=== PATIENT | female | born 2000 | race Caucasian/White ===

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

== ENCOUNTER 2023-05-09 13:27 | Emergency (ER) | payer BC, SELFPAY ==
[2023-05-09 13:50] VITALS: BP 144/76; PULSE 85; RESP 20; TEMP 36.9; O2SAT 99; BMI 29.9
--- NOTE | 2023-05-09 14:02 | ED_ITS ---
Discharge Plan Disposition Patient Disposition: Home, Self-Care Condition: Good Prescriptions Prescriptions: New methocarbamol 500 mg tablet 500 mg PO TID PRN (Reason: muscle spasm) Qty: 15 0RF etodolac 200 mg capsule 200 mg PO Q8H PRN (Reason: pain) Qty: 20 0RF Referrals Follow up/Referrals: Hawk Lucas [Primary Care Provider] - See instructions Activity Restrictions/Add. Instructions Additional Instructions/Restrictions: *Etodolac hung 8 hours with meal as needed for pain/inflammation *Remember you had a Toradol shot in the clinic today, which is similar to Etodolac so do not start until 10pm *Not additional anti-inflammatory like Ibuprofen, motrin, aleve, advil with the above amount of Etodolac. You can still take Tylenol every 4 hours as needed if you need something else for pain *Ice 20 minutes every 2 hours for the first 48 hours after the initial injury followed by moist heat every 20 minutes 3-4 times a day to affected area *Muscle relaxer every 8 hours as needed for muscle spasms but remember, it WILL cause drowsiness You cannot take it and drive, operate machinery or care for small children. *Keep this area active, no movement leads to more stiffness, However take it easy and avoid heavy lifting pushing or pulling *Follow up with you family doctor if no improvement for further treatment Clinical Impressions Clinical Impression: Muscle spasm Instructions Patient Instructions: DI for Muscle Spasm, Etodolac, Methocarbamol Discharge ED Provider: Lubna Gunter [facility] General Stated complaint: poss pulled muscle back in back Mode of Arrival: Ambulatory Source of Information: Patient Limitations: No Limitations Time Seen by Provider: 05/09/23 14:02 Description of Symptoms (Recalled from Triage Doc. 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 and felt something pull in her middle back states that since then she has been having spasms and pain with certain movements and deep breath States that spasms has continued so she came in to get it checked Related Data Previous Rx's Medication Instructions Recorded etodolac 200 mg capsule 200 mg PO Q8H PRN pain #20 caps 05/09/23 methocarbamol 500 mg tablet 500 mg PO TID PRN muscle spasm #15 05/09/23 tabs Allergies Allergy/AdvReac Type Severity Reaction Status Date / Time amoxicillin Allergy Unknown Verified 08/20/21 21:41 Worker's Comp Is this a Worker's Comp case?: No [facility] Disclaimer: The information contained in this section may have been updated after the patient was seen, as this information can be updated by other users. Medical History (Updated 05/09/23 @ 14:30 by Luban Gunter APRN) History of anemia Hypertension Kidney stone Liver disease Surgical History (Updated 05/09/23 @ 13:58 by Marla Sánchez RN) History of cholecystectomy Social History Smoking Status: Unknown if ever smoked alcohol intake: never current occupational status: unemployed Travel in the last 8 weeks: None ROS Obtained: Yes All systems reviewed & no additional complaints except as doc umented and Yes Systems reviewed as appropriate & no additional complaints except as documented Constitutional Constitutional: Reports system reviewed and no additional complaints, except as documented and Reports as per HPI ENT Ears, Nose, Mouth, and Throat: Reports system reviewed and no additional complaints, except as documented and Reports as per HPI Cardiovascular Cardiovascular: Reports system reviewed and no additional complaints, except as documented and Reports as per HPI Respiratory Respiratory: Reports system reviewed and no additional complaints, except as documented and Reports as per HPI Gastrointestinal Gastrointestingal: Reports system reviewed and no additional complaints, except as documented and as per HPI Musculoskeletal Musculoskeletal: Reports system reviewed and no additional complaints, except as documented, Reports as per HPI and Reports back pain Physical Exam General General appearance: alert and in no apparent distress ENT ENT exam: Present mucous membranes moist Respiratory Respiratory exam: Present normal lung sounds bilaterally; Absent respiratory distress or wheezes Cardiovascular Cardiovascular exam: Present regular rate, normal rhythm and normal heart sounds Abdominal Exam Abdominal exam: Present soft and normal bowel sounds; Absent distention or tenderness Back Exam Back exam: Present tenderness and muscle spasm Back 1 view image: 1. reports spasm like pain that feels like something is grabbing with certain movements denies radiation of pain and denies loss of control of bowel or bl adder Neurological Exam Neurological exam: Present alert, oriented X3 and normal gait Medical Decision Making Nahid Inquiry Pt receiving controlled substance: No Nahid was queried for this patient: No Vital Signs: 05/09/23 13:50 Temperature 98.4 F Temperature Source Oral Pulse Rate [Left Brachial] 85 Respiratory Rate 20 Blood Pressure [Left Arm] 144/76 H Blood Pressure Mean [Left Arm] 98 Blood Pressure Source [Left Arm] Automatic Cuff Blood Pressure Position [Left Arm] Sitting 02 Sat by Pulse Oximetry 99 Oxygen Delivery Method Room Air Lab Data Lab results reviewed: Yes I reviewed the patient's lab results. Medical Decision Narrative: Patient states that she is suppose to take venlaflaxine but she hasnt been taking it
[2023-05-09 14:17] LABS: UTC Pregnancy Test, Urine Negative (Negative)
[2023-05-09] MEDS: KETOROLAC 60MG/2ML VIAL 60 MG IM (14:24)
[2023-05-09 14:37] VITALS: BP 144/76; PULSE 85; RESP 20; TEMP 36.9; O2SAT 99
== END 2023-05-09 14:42 | disposition home or self-care (01) ==
PROVIDERS: Emergency Provider Nurse Practitioner; PCP Pediatrics
DX: R25.2 Cramp and spasm (principal); I10 Essential (primary) hypertension
CPT/HCPCS: 81025; 96372; 99212; 99214; G0463

== ENCOUNTER 2023-05-17 18:42 | Emergency (ER) | payer BC, SELFPAY ==
[2023-05-17 18:43] VITALS: BP 144/75; PULSE 114; RESP 18; TEMP 39.2; O2SAT 100; BMI 29.9
[2023-05-17 18:51] VITALS: BMI 29.9
[2023-05-17 18:58] LABS: Coronavirus 19, PCR Not Detected (NotDetected); Influenza B, PCR Not Detected (NotDetected)
[2023-05-17] MEDS: IBUPROFEN 600 MG TABLET PO (18:58)
[2023-05-17] MEDS: ACETAMINOPHEN 500MG TAB 1000 MG PO (18:59)
--- NOTE | 2023-05-17 19:23 | ED_ITS ---
Discharge Plan Disposition Patient Disposition: Home, Self-Care Prescriptions Prescriptions: New oseltamivir [Tamiflu] 75 mg capsule 75 mg PO BID 5 Days Qty: 10 0RF ondansetron 4 mg tablet,disintegrating 4 mg PO Q6H PRN (Reason: nausea and vomiting) Qty: 10 0RF No Action methocarbamol 500 mg tablet 500 mg PO TID PRN (Reason: muscle spasm) Qty: 15 0RF etodolac 200 mg capsule 200 mg PO Q8H PRN (Reason: pain) Qty: 20 0RF Referrals Follow up/Referrals: Hawk Lucas [Primary Care Provider] - See instructions Activity Restrictions/Add. Instructions Additional Instructions/Restrictions: Call your family doctor to establish care for this visit to the emergency department and schedule follow-up within 48 hours to ensure improvement. If you have any worsening of your condition or any other concerning signs or symptoms, return to the emergency department or your primary care doctor for further evaluation. Discharge ED Provider: Isiah Bazan General Adult HPI General Chief complaint: Upper Respiratory Infection Stated complaint: JERNIGAN, vomiting, body aches Time Seen by Provider: 05/17/23 18:43 Mode of Arrival: Ambulatory Source of Information: Patient Limitations: No Limitations Description of Symptoms (Recalled from ER Triage Doc. by RN): PT REPORTS FEVER, HEADACHE, BODYACHES AND CONGESTION THAT STARTED THIS AM History of Present Illness HPI narrative: 22-year-old female history of anxiety presenting with multiple complaints. She started having fevers, body aches, nausea and vomiting and general malaise today, 05/17 in AM. Has not taken any meds patient's. She started having a fever 102 degrees max. Came to the emergency department for further evaluation. No known sick contacts that she knows of. No other complaints Related Data Previous Rx's Medication Instructions Recorded etodolac 200 mg capsule 200 mg PO Q8H PRN pain #20 caps 05/09/23 methocarbamol 500 mg tablet 500 mg PO TID PRN muscle spasm #15 05/09/23 tabs ondansetron 4 mg disintegrating 4 mg PO Q6H PRN nausea and 05/17/23 tablet vomiting #10 tabs oseltamivir 75 mg capsule (Tamiflu) 75 mg PO BID 5 days #10 caps 05/17/23 Allergies Allergy/AdvReac Type Severity Reaction Status Date / Time amoxicillin Allergy Unknown Verified 08/20/21 21:41 [facility] Disclaimer: The information contained in this section may have been updated after the patient was seen, as this information can be updated by other users. Medical History (Updated 05/09/23 @ 14:30 by Lubna Gunter APRN) History of anemia Hypertension Kidney stone Liver disease Surgical History (Updated 05/09/23 @ 13:58 by Marla Sánchez RN) History of cholecystectomy Social History (Updated 05/09/23 @ 14:33 by Lubna Gunter APRN) Smoking Status: Never smoker alcohol intake: never current occupational status: unemployed Travel in the last 8 weeks: None ROS Obtained: Yes All systems reviewed & no additional complaints except as documented Physical Exam General General appearance: alert, in no apparent distress and anxious Head Head exam: atraumatic and normocephalic Eye Eye exam: Present normal appearance, PERRL and EOMI ENT ENT exam: Present mucous membranes moist Neck Neck exam: Present normal inspection, full ROM and trachea midline Respiratory Respiratory exam: Absent respiratory distress, wheezes, stridor, accessory muscle use or prolonged expiratory phase Cardiovascular Cardiovascular exam: Present normal rhythm and tachycardia Abdominal Exam Abdominal exam: Present soft; Absent distention, tenderness, guarding, rebound or rigidity Extremities Exam Extremities exam: Absent edema Neurological Exam Neurological exam: Present alert, oriented X3, CN II-XII intact and normal gait; Absent motor sensory deficit Skin Skin exam: Present warm and dry; Absent diaphoresis or erythema Medical Decision Making Medical Records Medical records reviewed: Yes I reviewed the patient's medical records. Nahid Inquiry Pt receiving controlled substance: No Nahid was queried for this patient: No Vital Signs: 05/17/23 18:43 Temperature 102.5 F H Temperature Source Oral Pulse Rate [Radial] 114 H Respiratory Rate 18 Blood Pressure [Right Arm] 144/75 H Blood Pressure Mean [Right Arm] 98 Blood Pressure Source [Right Arm] Automatic Cuff Blood Pressure Position [Right Arm] Sitting 02 Sat by Pulse Oximetry 100 Oxygen Delivery Method Room Air Lab Data Lab Results 05/17/23 18:45: SARS-CoV-2 (PCR) Not detected, Influenza A Untype (PCR) Detected A, Influenza Type B (PCR) Not detected Orders (Tests/Meds): ED MEDICATIONS Generic Name Dose Route Start Last Admin Trade Name Freq PRN Reason Stop Dose Admin Oseltamivir Phosphate 75 mg 05/17/23 19:35 Oseltamivir 75mg Capsule PO 05/17/23 19:36 ONCE ONE Discontinued Medications Generic Name Dose Route Start Last Admin Trade Name Prem VAUGHNN Reason Stop Dose Admin Acetaminophen 1,000 mg 05/17/23 18:52 05/17/23 18:59 Acetaminophen 500mg Tab PO 05/17/23 18:53 1,000 mg ONCE ONE Administration Ibuprofen 800 mg 05/17/23 18:54 Ibuprofen 800 Mg Tablet PO 05/17/23 18:55 ONCE ONE Ibuprofen 600 mg 05/17/23 18:55 05/17/23 18:58 Ibuprofen 600 Mg Tablet PO 05/17/23 18:56 600 mg ONCE ONE Administration Ondansetron HCl 4 mg 05/17/23 19:21 05/17/23 19:26 Ondansetron 4mg Odt SL 05/17/23 19:22 4 mg ONCE ONE Administration ORDERS Category Date Time Status Rapid PCR Covid and Flu A/B Stat Lab 05/17/23 18:45 Completed Medical Decision Narrative: 22-year-old female history of anxiety presenting with multiple complaints. She started having fevers, body aches, nausea and vomiting and general malaise today, 05/17 in AM. Has not taken any meds patient's. She started having a fever 102 degrees max. Came to the emergency department for further evaluation. No known sick contacts that she knows of. No other complaint. History was obtained via conversation with patient and family. On arrival, patient hemodynamically stable, alert, oriented x4, appropriate, GCS 15, moving all extremities spontaneously, pupils equal and reactive to light. Full physical exam performed and significant for anxious appearing woman in no acute distress. She is tachycardic, but oxygen is normal. Lungs clear to auscultation bilaterally. Abdomen soft, no flank tenderness. Overall, well- appearing woman. Differential includes influenza, COVID, other viral syndrome, among others. Patient was given Tylenol, Motrin p.o., Zofran sublingually for symptomatic management and correction of underlying abnormalities. Workup independently interpreted and significant for flu a positive. See radiology read for full review of final results. On reevaluation, patient given Tamiflu and Decadron. Given patient presentation, workup, history, this most likely represents fluid positivity. Because patient at baseline without signs or symptoms of clinical decompensation, deemed appropriate for discharge. Results were relayed to patient who voiced understanding and were agreeable to outpatient management and follow up. At the time of discharge the patient was hemodynamically stable, tolerating PO, and mobilizing appropriately. Tamiflu sent to pharmacy Critical Care Critical Care Time Critical Care Time: No
[2023-05-17] MEDS: ONDANSETRON 4MG ODT 4 MG SL (19:26)
[2023-05-17 19:30] LABS: Influenza A, PCR Detected (NotDetected)
[2023-05-17] MEDS: DEXAMETHASONE 4MG TABLET 10 MG PO (19:44)
[2023-05-17] MEDS: OSELTAMIVIR 75MG CAPSULE 75 MG PO (19:45)
[2023-05-17 20:36] VITALS: BP 145/75; PULSE 99; RESP 16; TEMP 37.4; O2SAT 98
== END 2023-05-17 20:37 | disposition home or self-care (01) ==
PROVIDERS: Emergency Provider Emergency Medicine; PCP Pediatrics
DX: R51.9 Headache, unspecified (principal); R09.81 Nasal congestion; R11.2 Nausea with vomiting, unspecified; J06.9 Acute upper respiratory infection, unspecified; R50.9 Fever, unspecified; I10 Essential (primary) hypertension
CPT/HCPCS: 87636; 99283

== ENCOUNTER 2023-09-27 10:30 | Emergency (ER) | payer BC, SELFPAY ==
[2023-09-27 10:35] VITALS: BP 137/71; PULSE 105; RESP 18; TEMP 36.6; O2SAT 100; BMI 30.9
--- NOTE | 2023-09-27 10:47 | XR_ITS ---
FINAL REPORT CLINICAL HISTORY: pain FINDINGS: Right shoulder Three views were obtained. There is no acute fracture or dislocation. The joint spaces appear normal. No soft tissue abnormality is identified. IMPRESSION: No acute process. Reviewed, Interpreted and Dictated by Tyrone Brown III, MD Transcribed by Modesta Capellan Authenticated and [facility]
--- NOTE | 2023-09-27 10:48 | EXP.UTC ---
Discharge Plan Disposition Patient Disposition: Home, Self-Care Condition: Good Prescriptions Prescriptions: New ibuprofen 600 mg tablet 600 mg PO TID PRN (Reason: pain) Qty: 30 0RF No Action prazosin 1 mg capsule 1 mg PO DAILY hydroxyzine HCl 25 mg tablet 25 mg PO DAILY propranolol 20 mg tablet 20 mg PO DAILY aripiprazole 10 mg tablet 10 mg PO DAILY Patient Comments: TAKE 1 TABLET BY MOUTH EVERY DAY Referrals Follow up/Referrals: Chelly Hytat DO [Primary Care Provider] - See instructions Clinical Impressions Clinical Impression: Acute pain of right shoulder Instructions Patient Instructions: DI for Shoulder Pain Discharge ED [place] Shonda Berg [facility] [place] General Stated complaint: right shoulder pain Time Seen by Provider: 09/27/23 10:48 History of Present Illness Provider Complaint: Pt relates that she was putting groceries in the trunk and the oconnell came down and hit her on top of the shoulder. She reports that now the pain is bad and she can't even have a bra strap on her shoulder. Related Data Home Medications Medication Instructions Recorded Confirmed aripiprazole 10 mg tablet 10 mg PO DAILY 09/27/23 09/27/23 hydroxyzine HCl 25 mg tablet 25 mg PO DAILY 09/27/23 09/27/23 prazosin 1 mg capsule 1 mg PO DAILY 09/27/23 09/27/23 propranolol 20 mg tablet 20 mg PO DAILY 09/27/23 09/27/23 Previous Rx's Medication Instructions Recorded ibuprofen 600 mg tablet 600 mg PO TID PRN pain #30 tabs 09/27/23 Allergies Allergy/AdvReac Type Severity Reaction Status Date / Time amoxicillin Allergy Unknown Verified 09/27/23 11:01 [facility] Disclaimer: The information contained in this section may have been updated after the patient was seen, as this information can be updated by other users. Medical History (Updated 09/27/23 @ 12:43 by Shonda Berg APRN) Liver disease History of anemia Kidney stone Hypertension Surgical History History of cholecystectomy Social History Smoking Status: Never smoker alcohol intake: never current occupational status: unemployed Travel in the last 8 weeks: None ROS Obtained: Yes All systems reviewed & no additional complaints except as documented Constitutional Constitutional: Reports system reviewed and no additional complaints, except as documented Eyes Eyes: Reports system reviewed and no additional complaints, except as documented ENT Ears, Nose, Mouth, and Throat: Reports system reviewed and no additional complaints, except as documented Cardiovascular Cardiovascular: Reports system reviewed and no additional complaints, except as documented Respiratory Respiratory: Reports system reviewed and no additional complaints, except as documented Gastrointestinal Gastrointestingal: Reports system reviewed and no additional complaints, except as documented Genitourinary Female Genitourinary: Reports system reviewed and no additional complaints, except as documented Musculoskeletal Musculoskeletal: Reports system reviewed and no additional complaints, except as documented, Reports arthralgias, Reports myalgias and Reports radiating pain into limb Comments: top of right shoulder. States that she will have a shooting pain that goes down her arm with shoulder movement. Integumentary/Breasts Skin/Breast: Reports system reviewed and no additional complaints, except as documented Neurologic Neurologic: Reports system reviewed and no additional complaints, except as documented Endocrine Endocrine: Reports system reviewed and no additional complaints, except as documented Hematologic/Lymphatic Henatologic/Lymphatic: Reports system reviewed and no additional complaints, except as documented Allergic/Immunologic Allergic/Immunologic: Reports system reviewed and no additional complaints, except as documented Physical Exam General General appearance: alert and in no apparent distress Head Head exam: atraumatic and normocephalic Eye Eye exam: Present normal appearance ENT ENT exam: Present normal exam Neck Neck exam: Present normal inspection Chest Chest inspection: Present normal inspection and symmetric chest wall rise Respiratory Respiratory exam: Present normal lung sounds bilaterally Cardiovascular Cardiovascular exam: Present regular rate and normal rhythm Abdominal Exam Abdominal exam: Present soft Expanded Upper Extremity Exam Right: Shoulder exam: Present full ROM, tenderness and tenderness over AC joint Arm exam: Present ecchymosis and other (2 bruises noted on right upper arm) Elbow exam: Present normal inspection Forearm/Wrist exam: Present normal inspection Hand exam: Present normal inspection Vascular exam: Normal capillary refill Back Exam Back exam: Present normal inspection Neurological Exam Neurological exam: Present alert and oriented X3 Psychiatric Psychiatric exam: Present normal affect and normal mood Skin Skin exam: Present warm, dry and intact Lymphatic Lymphatic Findings: no adenopathy Medical Decision Making Nahid Inquiry Pt receiving controlled substance: No Nahid was queried for this patient: No Orders (Tests/Meds): ORDERS Category Date Time Status Shoulder XR right miminum 2 views [XR shoulder RT min Exams 09/27/23 10:47 Ordered 2V] Stat
[2023-09-27 12:46] VITALS: BP 137/71; PULSE 105; RESP 18; TEMP 36.6; O2SAT 100
== END 2023-09-27 12:46 | disposition home or self-care (01) ==
PROVIDERS: Emergency Provider Nurse Practitioner Family; PCP Student in an Organized Health Care Education/Training Program
DX: M25.511 Pain in right shoulder (principal); S40.021A Contusion of right upper arm, initial encounter; W20.8XXA Other cause of strike by thrown, projected or falling object, initial encounter
CPT/HCPCS: 73030; 99212; 99214; G0463